=== PATIENT | male | born 1985 | race Two or more races ===

== ENCOUNTER 2019-09-04 23:25 | Emergency (ER) | payer OTHER ==
--- NOTE | 2019-09-04 23:50 | EDM.PDOC ---
ED HPI GENERAL MEDICAL PROBLEM - General Chief Complaint: ENT Problem Stated Complaint: KNOCKED FRONT TEETH OUT Time Seen by Provider: 09/04/19 23:49 Source of Information: Reports: Patient History Limitations: Reports: No Limitations - History of Present Illness INITIAL COMMENTS - FREE TEXT/NARRATIVE: Patient comes emergency department today with complaints of an injury to his upper front teeth. Patient had about 6 beers tonight when he was walking on the sidewalk he tripped and fell landing striking his teeth on the concrete. He did not otherwise hit his head. He did not get knocked out. He has no headache visual disturbances neck pain. He only complains of pain on his mouth on his upper to front teeth. He denies any other pain or injury to his face. No difficulty swallowing. No difficulty talking. Gums Pain Score (Numeric/FACES): 3 Past Medical History Cardiovascular History: Reports: Hypertension Social & Family History - Tobacco Use Smoking Status *Q: Never Smoker Second Hand Smoke Exposure: No - Recreational Drug Use Recreational Drug Use: No ED ROS ENT - Review of Systems Review Of Systems: Comprehensive ROS is negative, except as noted in HPI. ED EXAM, ENT - Physical Exam Exam: See Below Exam Limited By: No Limitations General Appearance: Alert, WD/WN, No Apparent Distress Eye Exam: Bilateral Eye: EOMI, PERRL Ears: Normal External Exam, Normal Canal, Hearing Grossly Normal, Normal TMs Nose: Normal Inspection, Normal Mucousa, Clear Rhinorrhea Mouth/Throat: Normal Lips, Normal Oropharynx, Gum Swelling (He does have some gum swelling on his upper gums where one tooth number 8 has been completely avulsed or knocked out and tooth #9 is pushed back a little bit and also broken at an angle at he distal aspect of the tooth. ), Other (Patient's tooth #8 has been knocked out. Tooth #9 has been pushed back and also broken on the distal medial tip at an angle. The rest of the mouth and as well as the face is really atraumatic. There is no bony deformities step-offs contusions abrasions or other signs of trauma. He is able to open and close his mouth appropriately.). No: Drooling, Trismus, Uvular Deviation, Uvular Edema Head: Atraumatic (Than the trauma to his teeth), Normocephalic Neck: Normal Inspection, Supple, Non-Tender, Full Range of Motion. No: Tender Lateral, Tender Midline Respiratory/Chest: No Respiratory Distress Cardiovascular: Normal Peripheral Pulses Neurological: Alert, Oriented, CN II-XII Intact, Normal Cognition, Normal Gait, No Motor/Sensory Deficits Psychiatric: Normal Affect, Normal Mood Skin: Warm, Dry, Intact, Normal Color, No Rash Course - Vital Signs Last Recorded V/S: Last Vital Signs Temp 96.9 F 09/04/19 23:32 Pulse 69 09/04/19 23:32 Resp 18 09/04/19 23:32 BP 159/107 H 09/04/19 23:32 Pulse Ox 97 09/04/19 23:32 - Re-Assessments/Exams Free Text/Narrative Re-Assessment/Exam: 09/05/19 01:00 I really wish that I would be able to help this patient although there is nothing that I am able to do in the emergency department for his tooth that was knocked out that he does not have or the tooth that is been broken and placed. We will have him follow-up with dentist tomorrow. He is understanding of this his questions are answered. Symptomatic management until that time. Departure - Departure Time of Disposition: 23:51 Disposition: Home, Self-Care 01 Clinical Impression: Tooth knocked out Qualifiers: Tooth loss class: unspecified tooth loss Qualified Code(s): K08.419 - Partial loss of teeth due to trauma, unspecified class Broken tooth injury Qualifiers: Encounter type: initial encounter Fracture type: closed Qualified Code(s): S02.5XXA - Fracture of tooth (traumatic), initial encounter for closed fracture - Discharge Information Instructions: Tooth Injuries, [id number] Forms: ED Department Discharge Additional Instructions: Tylenol and or Ibuprofen for pain. Ice to the sore areas. See a dentist tomorrow. Return to the ED if new or worsening symptoms. Sepsis Event Note (ED) - Evaluation Sepsis Screening Result: No Definite Risk - Focused Exam Vital Signs: Vital Signs Temp Pulse Resp BP Pulse Ox 09/04/19 23:32 96.9 F 69 18 159/107 H 97 - Assessment/Plan Assessment:: Tooth knocked out. Tooth injury broken. Plan: Tylenol and or Ibuprofen for pain. Ice to the sore areas. See a dentist tomorrow. Return to the ED if new or worsening symptoms.
== END 2019-09-04 23:57 | disposition home or self-care (01) ==
LOC: DL.ED 23:25
DX: S02.5XXA Fracture of tooth (traumatic), initial encounter for closed fracture (principal); K08.419 Partial loss of teeth due to trauma, unspecified class; I10 Essential (primary) hypertension; W01.0XXA Fall on same level from slipping, tripping and stumbling without subsequent striking against object, initial encounter
CPT/HCPCS: 99283